=== PATIENT | female | born 1990 | race African-American/Black ===

== ENCOUNTER 2020-12-03 17:53 | Observation (INO) | payer BC, SELFPAY ==
--- NOTE | 2020-12-03 17:44 | PC.NURSE ---
Patient to ED with c/o abdominal tightening and pink discharge and currently 30 weeks . OB nurse notified and transferred to OB at this time.
[2020-12-03 18:15] VITALS: BP 123/66; PULSE 99
[2020-12-03 18:29] VITALS: BMI 31.4
[2020-12-03 18:36] VITALS: TEMP 36.6
--- NOTE | 2020-12-03 18:46 | OBADM ---
This patient, Kaur Davidson, admitted to the OB room OB Post 116 for observation. Patient/family oriented to hospital policies and general routines including ID bracelet, bed and alarms, visiting hours, pain management, procedures, bathroom and other care routines, personal items, smoking policy, room service/diet, and visiting hours. Patient/Family are encouraged to report perceived risks to care and to ask questions if they do not understand what they are told or what they should do.
--- NOTE | 2020-12-03 19:05 | PC.NURSE ---
Dr. Silvestre phoned in for pt report. Report given and orders received.
--- NOTE | 2020-12-03 19:13 | PC.NURSE ---
Pt states she is no longer feeling tightness at this time.
[2020-12-03 19:16] LABS: Add Urine Microscopic? YES; Amorphous Sediment Urine Few; Appearance Urine Clear (Clear); Bacteria Urine Trace /hpf; Bilirubin Urine Negative (Negative); Blood Urine Negative (Negative); Color Urine Straw (Yellow); Glucose Urine UA 1+ mg/dL (Negative); Ketones Urine Negative (Negative); Leukocyte Esterase Ur Negative LEU/UL (Negative); Mucus Urine Rare /lpf; Nitrate Urine Negative (Negative); Protein Urine Negative (Negative); RBC Urine 0-2 /hpf (0-2); Specific Grav Ur 1.006 (1.001-1.035); Urobilinogen Urine Negative mg/dL (<2.0); WBC Urine 0-3 /hpf
--- NOTE | 2020-12-21 08:22 | PM.OBTRLD ---
OB - Triage/Final Diagnosis Visit Information Comments/Additional reasons for admission: I have assessed the risk for this patient, Kaur Davidson, and determined that she would benefit from observation care. Evaluation Laboratory results: Laboratory Tests 12/03/20 18:56 Urine Color Straw Urine Appearance Clear Urine pH 6.0 Ur Specific [place] 1.006 Urine Protein Negative Urine Glucose (UA) 1+ H Urine Ketones Negative Ur Blood (Man) Negative Urine Nitrate Negative Urine Bilirubin Negative Urine Urobilinogen Negative Leukocyte Esterase Rfl Negative Urine RBC 0-2 Urine WBC 0-3 Amorphous Sediment Few H Urine Bacteria Trace Hyaline Casts 1-2 Urine Mucus Rare Final Diagnosis (1) Cramping complicating , antepartum: Code(s): O26.899 - Other specified related conditions, unspecified trimester; R10.9 - Unspecified abdominal pain Status: Acute (2) Vaginal discharge during in third trimester: Code(s): O26.893 - Other specified related conditions, third trimester; N89.8 - Other specified noninflammatory disorders of vagina Status: Acute
--- NOTE | 2021-01-01 10:46 | PM.OBTRLD ---
OB - Triage/Final Diagnosis Visit Information Comments/Additional reasons for admission: I have assessed the risk for this patient, Kaur Davidson, and determined that she would benefit from observation care. Evaluation Laboratory results: Laboratory Tests 12/03/20 18:56 Urine Color Straw Urine Appearance Clear Urine pH 6.0 Ur Specific [place] 1.006 Urine Protein Negative Urine Glucose (UA) 1+ H Urine Ketones Negative Ur Blood (Man) Negative Urine Nitrate Negative Urine Bilirubin Negative Urine Urobilinogen Negative Leukocyte Esterase Rfl Negative Urine RBC 0-2 Urine WBC 0-3 Amorphous Sediment Few H Urine Bacteria Trace Hyaline Casts 1-2 Urine Mucus Rare Final Diagnosis (1) Vaginal discharge during in third trimester: Code(s): O26.893 - Other specified related conditions, third trimester; N89.8 - Other specified noninflammatory disorders of vagina Status: Acute (2) Cramping complicating , antepartum: Code(s): O26.899 - Other specified related conditions, unspecified trimester; R10.9 - Unspecified abdominal pain Status: Acute
== END 2020-12-03 19:35 | disposition home or self-care (01) ==
PROVIDERS: Admitting Provider Obstetrics & Gynecology; Visit Provider Obstetrics & Gynecology
DX: O26.899 Other specified pregnancy related conditions, unspecified trimester (principal); R10.9 Unspecified abdominal pain; O26.893 Other specified pregnancy related conditions, third trimester; N89.8 Other specified noninflammatory disorders of vagina; Z3A.00 Weeks of gestation of pregnancy not specified
CPT/HCPCS: 81001; 84112; G0378; G0379

== ENCOUNTER 2021-01-31 09:50 | Outpatient (RCR) | payer BC, SELFPAY ==
[2021-01-17 15:11] VITALS: BP 106/71; PULSE 95
[2021-01-23 16:07] VITALS: BP 99/66; PULSE 96
--- NOTE | ~2021-01-31 | US_ITS ---
EXAMINATION: US OB limited DATE: 01/17/2021 15:33 INDICATION: Third trimester. Amniotic fluid index. TECHNIQUE: Real-time ultrasound of the pelvis was performed. COMPARISON: None. FINDINGS: There is a single fetus in vertex presentation. The placenta is fundal. heart rate is 138 beat s per minute (bpm). The amniotic fluid index is 18.3 cm cm, which is normal. IMPRESSION: 1. Single living fetus in vertex presentation. 2. Normal amniotic fluid index. Reviewed, dictated and finalized at location A.
--- NOTE | ~2021-01-31 | US_ITS ---
EXAMINATION: US OB limited DATE: 01/31/2021 10:55 INDICATION: Anemia and amniotic fluid index assessment during third trimester TECHNIQUE: Real-time ultrasound of the pelvis was performed. The interpreting radiologist was not pre sent for the study. COMPARISON: 01/23/2021 FINDINGS: There is a single living fetus in vertex presentation. The placenta is posterior. car diac activity and movement are noted. heart rate is 137 beats per minute (bpm). The amnio tic fluid index is 18.6 cm which is normal. IMPRESSION: 1. Single living fetus in vertex presentation. 2. Normal amniotic fluid index. Reviewed, dictated and finalized at location B. L PRESSER
--- NOTE | ~2021-01-31 | US_ITS ---
EXAMINATION: US OB limited DATE: 01/23/2021 16:21 INDICATION: Amniotic fluid index assessment during third trimester TECHNIQUE: Real-time ultrasound of the pelvis was performed. The interpreting radiologist was not pre sent for the study. COMPARISON: 01/17/2021 FINDINGS: There is a single living fetus in vertex presentation. The placenta is posterior/fundal. Fe tita cardiac activity and movement are noted. heart rate is 131 beats per minute (bpm). Th e amniotic fluid index is 15.2 cm which is normal. IMPRESSION: 1. Single living fetus in vertex presentation. 2. Normal amniotic fluid index. Reviewed, dictated and finalized at location B.
[2021-01-31 10:31] VITALS: BP 104/79; PULSE 100
== END 2021-04-05 09:27 | disposition home or self-care (01) ==
LOC: ANHOBOP 09:50
PROVIDERS: Visit Provider Obstetrics & Gynecology
DX: O99.013 Anemia complicating pregnancy, third trimester (principal); D64.9 Anemia, unspecified; Z3A.37 37 weeks gestation of pregnancy; Z3A.39 39 weeks gestation of pregnancy
CPT/HCPCS: 59025; 76815

== ENCOUNTER 2021-02-06 13:01 | Outpatient (CLI) | payer BC, SELFPAY ==
[2021-02-06 13:14] LABS: Basophils Percent Auto 0.3 % (0.2-1.2); Eosinophils Absolute Auto 0.1 K/mm3 (0-0.3); Eosinophils Percent Auto 0.9 % (0-4.4); Hematocrit 33.5 % (37.0-47.0); Hemoglobin 10.1 g/dL (12.0-15.0); Immature Granulocyte Absolute 0.04 K/mm3 (0.00-0.031); Immature Granulocyte Percent A 0.6 % (0-0.5); Immature Platelet Fraction Pct 6.8 % (0.9-11.2); Lymphocytes Absolute Auto 1.28 K/mm3 (0.9-3.2); Lymphocytes Percent Auto 18.5 % (18.3-44.2); Mean Corpuscular HGB Conc 30.1 g/dl (32-36); Mean Corpuscular Hemoglobin 23.1 pg (26-34); Mean Corpuscular Volume 76.5 fl (80-100); Monocytes Absolute Auto 0.5 K/mm3 (0.1-0.6); Monocytes Percent Auto 7.5 % (2.6-8.5); Neutrophils Percent Auto 72.2 % (45.5-73.1); Platelet Count Result 198 k/mm3 (150-375); Red Blood Count 4.38 M/mm3 (4.2-5.4); Red Cell Distribution Width 25.9 % (11.5-14.5); White Blood Count 6.9 K/mm3 (4.5-10.0)
[2021-02-07 06:25] LABS: Rapid Plasma Reagin Non-Reactive (NonReactive)
== END 2021-02-06 13:02 | disposition home or self-care (01) ==
LOC: ANHLAB 13:03
PROVIDERS: Visit Provider Obstetrics & Gynecology
DX: Z34.93 Encounter for supervision of normal pregnancy, unspecified, third trimester (principal); Z3A.38 38 weeks gestation of pregnancy
CPT/HCPCS: 36415; 85025; 85055; 86592; 86850; 86900; 86901

== ENCOUNTER 2021-02-07 05:33 | Inpatient (IN) | payer BC, SELFPAY ==
--- NOTE | 2021-01-17 15:56 | PC.NURSE ---
VERIFIED WITH OR SCHEDULE AND PATIENT -C/S 02/07/21 AT 0730 PATIENT GIVEN REQUISITION FOR LAB DRAW ON 02/06/21
[2021-02-07] VITALS (51 sets, daily range): BP systolic 79–122; BP diastolic 34–87; PULSE 56–117; RESP 14–18; TEMP 36.2–36.8; O2SAT 97–100; BMI 32.5
[2021-02-07] MEDS: LACTATED RINGERS 1,000 ML 999 ML IV CONT ×2 (07:00→08:49)
--- NOTE | 2021-02-07 07:12 | P.PNAN_ITS ---
Anes - Initial Pre Proc Eval Procedure: Operation Date: 02/07/21 07:30 Proposed Procedures p Primary Section - Nicolas Silvestre MD Date/Time: 02/07/21 07:12 Surgeon: Nicolas Silvestre MD Pre Op Diagnosis: Patient Data Age: 30 Gender: F Height: Weight: Last Vital Signs Pulse 87 02/07/21 06:28 BP 122/87 02/07/21 06:28 Allergies Allergy/AdvReac Type Severity Reaction Status Date / Time latex Allergy Mild Unknown Verified 01/30/21 10:00 Home Medications Medication Instructions Recorded Confirmed Type prenat.vits,xochitl,oeo-fmqw-qmysi 1 tablet PO DAILY 07/25/20 01/30/21 History ferrous sulfate 325 mg (65 mg 325 mg PO TID #60 tablet 01/18/21 01/30/21 Rx iron) tablet Patient hx anesthesia problems: none Family hx anesthesia problems: none Results Review: All pre-operative results and documents have been reviewed as part of the pre-operative evaluation. [facility] Past Medical History Medical History Anemia History of miscarriage Surgical History Surgical History History of section, low transverse [place] teeth removed Family History Family History Father Hypertension Mother Hypertension Social History Social History Smoking status: Never smoker Alcohol intake: current Substance use: never Spiritual care concerns: No Anes - Eval Final PreProcedure Day of Procedure 02/07/21 07:12 Patient weight: normal Heart: regular rate and rhythm Lungs: clear to auscultation Airway: Mallampati scale class II Neurological: alert and oriented Last oral intake: >/= 8 hours ASA classification: II Emergent: no Anesthetic plan: proceed Anesthesia type and monitoring: regional spinal and standard monitoring Results Review: All pre-operative results and documents have been reviewed as part of the pre-operative evaluation. Informed Consent: The patient's anesthetic plan and its attendant risks and benefits were discussed with the patient/family/POA. Questions were solicited and answers provided to the satisfaction of the patient/family/POA.
--- NOTE | 2021-02-07 07:15 | P.HP_ITS ---
H&P: HPI History of Present Illness Date/Time: 02/07/21 07:15 Patient admitted for repeat cesearean section at 39 weeks. PNC significant for anemia and prior csection. Declines trial of labor. labs reviewed. Chief Complaint: elective repeat ceserean section. Review of Systems Review of Systems: All systems reviewed & are unremarkable except as noted in HPI and below Constitutional: Constitutional: Reports no additional constitutional complaints and Denies headache(s) Eyes: Eyes: Denies spots in vision ENT: Reports system reviewed and no additional complaints, except as documented and Denies headache(s) Cardiovascular: Cardiovascular: Denies chest pain and Denies dyspnea Respiratory: Respiratory: Denies dyspnea Gastrointestinal: Gastrointestinal: Reports no additional gastrointestinal complaints Genitourinary: Genitourinary: Reports amenorrhea Musculoskeletal: Musculoskeletal: Reports no additional musculoskeletal complaints Integumentary/Breasts: Skin/Breast: Denies breast mass and Denies rash Neurologic: Denies headache(s) Psychiatric: Psychiatric: Reports no additional psychiatric complaints PMFSH Past Medical History Medical History Anemia History of miscarriage Surgical History Surgical History History of section, low transverse [place] teeth removed Family History Family History Father Hypertension Mother Hypertension Social History Social History Smoking status: Never smoker Alcohol intake: current Substance use: never Spiritual care concerns: No Meds Home Medications and Allergies Home Medications Medication Instructions Recorded Confirmed Type prenat.vits,xochitl,emk-zqrc-suasd 1 tablet PO DAILY 07/25/20 01/30/21 History ferrous sulfate 325 mg (65 mg 325 mg PO TID #60 tablet 01/18/21 01/30/21 Rx iron) tablet Allergies Allergy/AdvReac Type Severity Reaction Status Date / Time latex Allergy Mild Unknown Verified 01/30/21 10:00 Vital Signs Vital Signs - 24 hr 02/07/21 06:28 Pulse Rate 87 Blood Pressure 122/87 Exam Const: General: no acute distress Eyes: General: appearance normal, both eyes and all related structures Resp: Effort & Inspection: normal respiratory effort Cardio: Rate: regular rate GI: Other: Gravid no fundal tenderness no right upper quadrant pain Skin: General skin exam: no rashes or lesions noted Neuro: Cognition (Neuro): normal cognition Extrem: General: normal to inspection Psych: Mental Status: mental status grossly normal Assessment and Plan Assessment and plan (1) Delivery by elective section: Code(s): O82 - Encounter for delivery without indication Status: Acute Assessment and Plan: 1. Will proceed with repeat cesearean section.
--- NOTE | 2021-02-07 07:18 | WPDHPUPDATE1 ---
History and Physical Update Update Date/Time: 02/07/21 07:18 History and Physical has been reviewed, including an updated exam of the patient. There are NO changes in the patient's condition. Risks, benefits, and alternatives have been discussed and questions answered. Patient agrees to proceed with procedure.
[2021-02-07] MEDS: ceFAZolin 2 GM/D5W 50 ML 2 GM/50 ML BAG IVPB (07:29)
[2021-02-07] MEDS: LACTATED RINGERS 250 ML 999 ML IVPB (08:02)
--- NOTE | 2021-02-07 08:54 | PM.OP ---
Procedure Note - Brief Procedure Note - Brief Date of procedure: 02/07/21 Pre-op diagnosis: Elective repeat ceserean section. Post-op diagnosis: same Procedure performed: Elective repeat ceserean section. Anesthesia: spinal Surgeon: Nicolas Silvestre MD Estimated blood loss (mL): 315 Drains: No Packing: No Pathology: none sent Complications: No immediate complications Condition: stable Disposition: floor Findings: Male infant, apgars 9,9. 7lbs 110z. Delivery time 0803. Thin lower uterine segment. Loose cord around leg. Loose true knot noted in cord.
--- NOTE | 2021-02-07 09:12 | LDADM ---
This patient, Kaur Davidson, was admitted to Labor/Delivery/Recovery 120 on 02/07/21 at 05:33. Plans for labor, pain management and were discussed with patient. Patient/family oriented to hospital policies and general routines including ID bracelet, bed and alarms, visiting hours, pain management, procedures, bathroom and other care routines, personal items, smoking policy, room service/diet and guest tray routines, infant security routines, call light and visiting hours. Patient/Family are encouraged to report perceived risks to care and to ask questions if they do not understand what they are told or what they should do. See OBIX for further documentation.
[2021-02-07] MEDS: OXYTOCIN 30 UNITS/NS 500 ML 30 UNITS/500 ML BAG 125 UNITS IV CONT (10:20)
--- NOTE | 2021-02-07 10:29 | PC.NURSE ---
RX note : Oxytocin 30 units/500mls bag hung at 1020 at 125 ml/hr
--- NOTE | 2021-02-07 11:16 | OBPPTRN ---
Patient transferred to post room # 285 via stretcher. Support person present. Oriented to unit, room, information board, rooming in, admission packet and security measures. Patient transfered to bed using the maxi air and 3B's. Patient verbalizes understanding.
--- NOTE | 2021-02-07 13:30 | PC.NURSE ---
Mother called out for assist with feeding, reporting sleepy for first feeding at breast 45 minutes with 10-15 minutes of nursing. Assured mother this is normal the first day and should be more awake and eager to feeding by day 2-3. Infant is able to freely thrust tongue past gum ridge and flange both lips. Skin is intact on both nipples, no redness and bruising noted. Reviewed infant feeding cues, frequencies, duration of feedings, feeding elimination flow sheet, and signs of adequate intake. Demonstrated stimulation techniques to wake for feeding. Assisted with infant to breast. Reviewed positioning/alignment in cross cradle, holding breast in ?U? hold and guided asymmetrical latch on. Reviewed rational for each. able to latch correctly within a few attempts. nursed eagerly with steady draws and occasional swallowing noted followed with long pausing. Reviewed signs of a correct latch, effective nursing and suck swallow ratio. Suggested mother stimulate while feeding to increase stimulation for milk supply, for increased intake and to assist with maintaining deep latch. needed constant stimulation to keep awake and nursing effectively. Infant would slip to shallow latch causing tenderness. Demonstrated how to adjust latch more deeply while feeding as needed. Mother reports she can feel the difference in latch with no tenderness. Nipple care reviewed of lanolin after feedings, warm compresses as needed. Instructed mother to call out for RN assistance if she is unable to latch infant for feeding or she has discomfort with nursing. Instructed feeding should be initiated three hours from start of last feeding or if feeding cues are noted before. Mother voiced understanding of information share
[2021-02-07] MEDS: KCL 20 MEQ/D5/0.45% SOD CHL 1,000 ML 125 ML IV CONT (14:38)
--- NOTE | 2021-02-07 15:20 | PC.NURSE ---
Mother called out for assist with feeding, reporting is sleepy and not waking for feeding. Demonstrated stimulation techniques to wake infant for feeding. Several minutes of stimulation to wake . Assisted with infant to breast. Reviewed positioning/alignment in cross cradle, holding breast in ?U? hold and guided asymmetrical latch on. Reviewed rational for each. able to latch correctly within a few attempts. Infant nursed sleepily with steady draws and occasional swallowing noted followed with long pausing. Small amount of glucose water to gloved finger to entice to feed. needed constant stimulation to keep awake and feeding. Reviewed signs of a correct latch, effective nursing and suck swallow ratio. Suggested mother stimulate while feeding to increase stimulation for milk supply, for increased intake and to assist with maintaining deep latch. Infant would slip to shallow latch causing tenderness. Demonstrated how to adjust latch more deeply while feeding as needed. Mother reports she can feel the difference in latch with no tenderness. Nipple care reviewed of lanolin after feedings, warm compresses as needed. Instructed mother to call out for RN assistance if she is unable to latch infant for feeding or she has discomfort with nursing. Instructed feeding should be initiated three hours from start of last feeding or if feeding cues are noted before. Mother voiced understanding of information shared.
[2021-02-08 04:10] VITALS: BP 100/71; PULSE 68; RESP 16; TEMP 36.4; O2SAT 100
[2021-02-08 05:18] LABS: Basophils Percent Auto 0.3 % (0.2-1.2); Eosinophils Absolute Auto 0.1 K/mm3 (0-0.3); Eosinophils Percent Auto 0.6 % (0-4.4); Hematocrit 34.9 % (37.0-47.0); Hemoglobin 10.4 g/dL (12.0-15.0); Immature Granulocyte Absolute 0.05 K/mm3 (0.00-0.031); Immature Granulocyte Percent A 0.5 % (0-0.5); Immature Platelet Fraction Pct 7.3 % (0.9-11.2); Lymphocytes Absolute Auto 1.18 K/mm3 (0.9-3.2); Mean Corpuscular HGB Conc 29.8 g/dl (32-36); Mean Corpuscular Hemoglobin 23.2 pg (26-34); Mean Corpuscular Volume 77.9 fl (80-100); Monocytes Absolute Auto 0.9 K/mm3 (0.1-0.6); Monocytes Percent Auto 8.9 % (2.6-8.5); Neutrophils Absolute Auto 7.6 K/mm3 (1.3-6.7); Neutrophils Percent Auto 77.7 % (45.5-73.1); Platelet Count Result 184 k/mm3 (150-375); Red Blood Count 4.48 M/mm3 (4.2-5.4); Red Cell Distribution Width 25.7 % (11.5-14.5); White Blood Count 9.8 K/mm3 (4.5-10.0)
--- NOTE | 2021-02-08 06:47 | W.PM.PROC2 ---
Procedure Note - Detailed Date of Procedure 02/08/21 Pre-op Diagnosis elective repeat ceserean section Post-op Diagnosis same Procedure Performed Repeat low transverse ceserean section. Surgeon Nicolas Silvestre MD Anesthesia spinal Indications Elective repeat ceserean section. Findings Male , apgars 9,9, normal fallopian tubes and ovaries, lower uterine segment thin, umbilical cord loosely around leg, loose true know noted in cord. Description of Procedure After informed consent, risks and benefits of the procedure was discussed with the patient. The patient was taken to the operating room where adequate spinal anesthesia was administered. She was then prepped and draped in the usual sterile fashion. A Pfannenstiel skin incision was made along the prior Pfannesteihl scar, with a scalpel and carried through to the underlying layer of fascia. The fascia was then nicked in the midline, extending bilaterally. The fascia was dissected off the rectus muscles bluntly and sharply, superiorly and inferiorly. The rectus muscles were in the midline, and peritoneum was identified and entered bluntly. The pelvic organs were visualized. The bladder blade was then inserted. The vesicouterine peritoneum was identified and entered sharply with Metzenbaum scissors and extended bilaterally and a bladder flap was created digitally. The low transverse uterine incision was then made with the scalpel and the amniotic cavity entered, clear fluid noted, and incision was extended with bilateral index fingers in a crescent-shaped fashion. The head was delivered and the rest of the infant was delivered. The nose and mouth suctioned. The cord was unwrapped from around the leg clamped twice and cut. The infant was then handed off to the awaiting nursery staff. The placenta was then delivered manually. The uterine cavity was sponge curetted. The uterus was then exteriorized. The uterine incision was then closed with 0 vicryl in a running locked fashion. A second layer of 0 vicryl was used in an imbricating fashion. The posterior cul de sac was irrigated. The uterus was then returned to the abdomen. Bilateral gutters were cleared off all clots and debris and irrigated. The uterine incision was noted to be hemostatic. Interceed placed on uterine incision and vertically on front of uterus. The muscle bellies were inspected and noted to be hemostatic. The peritoneum was closed with 3.0 vicryl. The subfascial layer was noted to be hemostatic, and the fascia was closed with 0 Vicryl in a running fashion. The subcutaneous layer was irrigated then closed with 3-0 Vicryl in a subcutaneous fashion. The skin was closed with dissolveable nick. Skin dermabond applied at incision. All instruments, needle, and lap counts were correct x3. The patient was taken to the recovery room in stable condition. Estimated Blood Loss -315.0 Urine Output -100.0 Packing No Pathology none sent Complications No immediate complications Condition stable Disposition floor
--- NOTE | 2021-02-08 08:10 | PC.NURSE ---
Mother called out for assist with feeding, reporting was sleepy during the night. Mother was able to pump and offer 10mls EBM for feeding. in bedside crib with heavy feeding cues noted. . Assisted with infant to breast. Reviewed positioning/alignment in cross cradle, holding breast in ?U? hold and guided asymmetrical latch on. Reviewed rational for each. Infant able to latch correctly within a few attempts. Infant nursed eagerly with steady draws and frequent swallowing noted, some pausing noted. Reviewed signs of a correct latch, effective nursing and suck swallow ratio. Suggested mother stimulate while feeding to increase stimulation for milk supply, for increased intake and to assist with maintaining deep latch. Infant was able to maintain latch without discomfort to mother. Demonstrated how to adjust latch more deeply while feeding as needed. Mother reports this is the most awake and eager feeding has had since . Nipple care reviewed of lanolin after feedings, warm compresses as needed. Instructed mother to call out for RN assistance if she is unable to latch for feeding or she has discomfort with nursing. Instructed feeding should be initiated three hours from start of last feeding or if feeding cues are noted before. Mother voiced understanding of information shared
[2021-02-08 08:30] VITALS: BP 120/82; PULSE 75; RESP 16; TEMP 37.3; O2SAT 100
--- NOTE | 2021-02-08 12:35 | P.PNOB_ITS ---
OB - PN: Subj Subjective Date/time seen: 02/08/21 0815 She has adequate pain control. She has sat up in chair. Lochia mild. Tolerated regular food. Baby is well today. OB - PN: Obj Data Labs CBC & Chem 7: 02/08/21 04:08 Labs: Laboratory Results - last 24 hr 02/08/21 02/08/21 04:08 04:08 WBC 9.8 RBC 4.48 Hgb 10.4 L Hct 34.9 L MCV 77.9 L MCH 23.2 L MCHC 29.8 L RDW 25.7 H Plt Count 184 MPV TNP Immature Gran % (Auto) 0.5 Neut % (Auto) 77.7 H Lymph % (Auto) 12.0 L [place] % (Auto) 8.9 H Eos % (Auto) 0.6 Baso % (Auto) 0.3 Lymph # (Auto) 1.18 [place] # (Auto) 0.9 H Eos # (Auto) 0.1 Baso # (Auto) 0.0 Abs Immat Gran (auto) 0.05 H Absolute Neuts (auto) 7.6 H Absolute Nucleated RBC 0.0 Nucleated RBC % 0.0 % Immature Plt Fraction 7.3 Blood Type O Positive OB - PN A/P Assessment and Plan (1) Delivery by elective section: Code(s): O82 - Encounter for delivery without indication Status: Acute Assessment and Plan: She is doing well. Continue routine post . Time Spent With Patient Time: Total time spent is greater than 50% in coordination of care (as documented) at patient's floor/unit and/or counseling patient: Exam Const: General: comfortable and no acute distress Resp: Effort & Inspection: normal respiratory effort Psych: Mental Status: mental status grossly normal Affect: normal affect
--- NOTE | 2021-02-08 12:53 | WPDANLDNPN2 ---
Anes-Prog Note L&D-Neuraxial Date/Time: 02/08/21 12:53 Neuraxial medications: intrathecal PF morphine Opiod-related complaints: none Patient feedback: Patient satisfied with post-operative pain management.
--- NOTE | 2021-02-08 12:54 | WPDANLDPN2 ---
Anes-Prog Note L&D Date/Time: 02/08/21 12:54 Comfortable throughout: section Neuraxial method: spinal Epidural/Spinal procedure site: clean & non-tender Neuro status: Neuro function grossly intact. Cardiovascular status: normal Respiratory status: normal Airway patency: baseline Mental status: baseline Post-Op hydration status: normal Vital Signs: Last Vital Signs Temp 37.3 C 02/08/21 08:30 Pulse 75 02/08/21 08:30 Resp 16 02/08/21 08:30 BP 120/82 02/08/21 08:30 Pulse Ox 100 02/08/21 08:30 Pain score (VAS): 0 I/O: Intake & Output 02/07/21 02/08/21 02/08/21 23:59 07:59 15:59 Intake Total 1300 100 Output Total 2200 700 50 Balance -900 -600 -50 Post-procedural complaints: none Patient feedback: Patient satisfied with anesthetic care.
[2021-02-08] MEDS: IBUPROFEN 600 MG TABLET PO ×3 (15:11→23:22)
[2021-02-08] MEDS: SIMETHICONE 80 MG TAB.CHEW PO (15:15)
--- NOTE | 2021-02-08 17:10 | PC.NURSE ---
Prune juice and pepsi cocktail given for gas pain per Dr. Silvestre
[2021-02-08] MEDS: DOCUSATE SODIUM 100 MG CAPSULE PO (17:30)
[2021-02-08 19:15] VITALS: BP 122/83; PULSE 76; RESP 16; TEMP 37.1; O2SAT 100
[2021-02-09 07:40] VITALS: BP 115/69; PULSE 78; RESP 16; TEMP 36.8; O2SAT 100
--- NOTE | 2021-02-09 09:29 | PC.NURSE ---
Breast feeding note; visited with parents; mother had at the breast when nurse came to bedside. Latch appeared deep, and baby was nursing (second side) with vigorous rhythmic sucking; encouraged mother to stimulate infant to the most vigorous sucking he will do for effective milk transfer, and when he slows to more suckling, OK to switch sides. Mother reports comfortable latch and breast feeding, much improved since baby had the frenulectomy yesterday. reviewed frequency and duration of feedings, care of breasts through engorgement, use of feeding log to monitor feedings and output per day of age. Baby had a very small wet diaper while nurse in room; wanting larger void prior to discharge. Mother reports she is feeling breast changes as if her milk is coming in, and prefers no supplement of formula. agreed. Nurse encouraged q2h feedings, and on demand, if baby will. Mother had questions about pumping to store milk for when she returns to work in 12 weeks. Nurse suggested pumping now only if needed for comfort as her milk is coming in, feeding infant frequently, allowing him to establish the milk supply he needs, and suggested she call LC at about 8 weeks from now for instruction on pumping to be able to store milk. She agreed with this plan. Breast feeding pages flagged in pt's Mother Baby Guide, including LC contact phone number. Mother encouraged to contact with any questions or concerns at any time. Parents were attentive and voiced understanding of information shared. Mother had no other questions for nurse.
[2021-02-09] MEDS: MULTIVIT/MIN/PREN/FOL AC/IRON TABLET 1 TAB PO (10:24)
[2021-02-09] MEDS: DOCUSATE SODIUM 100 MG CAPSULE PO (10:24)
[2021-02-09] MEDS: BISACODYL 10 MG SUPPOSITORY RECTAL ×2 (10:24→14:52)
--- NOTE | 2021-02-09 11:07 | PM.OBDSVD ---
DS: Admitting Diagnosis Discharge Date Jan. Admitting Diagnosis Elective ceserean section DS: Discharge Diagnosis Discharge Diagnosis (1) Delivery by elective section: Code(s): O82 - Encounter for delivery without indication Status: Acute OB - DS: Summary Hospital Course Hospital Course: Patient admitted on Feb 07 for elective repeat ceserean section. She underwent an uncomplicated repeat ceserean section. Post operatively she did well. She was ambulating on post op day 1. Her post op hemoglobin hematocrit was unchanged. On post op day two. She had not had flatus. She was given a suppository. She was tolerating regular foods, no nausea or emesis. OB Procedures : NST and Ultrasound OB Procedures Intrapartum: OB Procedures: : None Peripartum Data Delivery Method: Section Procedures: Procedures Operation Date: 02/07/21 07:30 Actual Procedure Side Surgeon p Primary Section Nicolas Silvestre MD complications: none Status at Discharge Functional status at discharge: independent ambulation Overall status at discharge: patient is back to baseline Time Spent with Patient Time attestation: Total time spent providing and/or coordinating discharge services: Exam Const: General: healthy appearing and comfortable HENMT: Head: normal to inspection Eyes: General: appearance normal, both eyes and all related structures Chest: Chest palpation & inspection: normal inspection of the chest Resp: Effort & Inspection: normal respiratory effort GI: Other: mild distension, hypoactive bowel sounds present, incision intact clean and dry Extrem: General: normal to inspection Other: no calf tenderness Psych: Appearance: grossly normal Discharge Plan Discharge Attending physician on discharge: Nicolas Silvestre Consulting providers: Shane Wilkerson Discharging Clinician: Nicolas Silvestre Anticipated Discharge Date/Time: 02/09/21 10:33 Patient Disposition: Home, Self-Care Activity: may shower, may drive after 2 weeks and pelvic rest Diet: regular Wound Care Instructions: incision open to air Discharge Instructions: No lifting over ten pounds. Call for fever, chills, breast redness or leg pain or redness. Call if any drainage or redness or swelling at incision. Take prescription medication or Tylenol for pain. May also take Ibuprofen over the counter. Recommend taking Miralax daily until having regular bowel movements. Call office to schedule appointment for two to three weeks for incision check. Patient Instructions: Antibiotic Form Stand Alone Forms: General Discharge Information Follow-up/Referrals: Nicolas Silvestre MD [Physician] - 2 Weeks Discharge Medications: New hydrocodone-acetaminophen 5-325 mg Tablet 1 tablet PO Q3H PRN (Reason: Moderate Pain (4-6)) Qty: 25 RF: 0 Continued ferrous sulfate 325 mg (65 mg iron) tablet 325 mg PO TID Qty: 60 RF: 0 prenat.vits,xochitl,[id number] Tablet 1 tablet PO DAILY RF: 0 Date of admission: 02/07/21 05:33 Primary Care Provider: UNKNOWN,DOCTOR Admitting Provider: Nicolsa Silvestre Attending physician on admission: Nicolas Silvestre Condition: Stable
[2021-02-10 07:45] VITALS: BP 123/87; PULSE 84; RESP 20; TEMP 37.2; O2SAT 99
== END 2021-02-09 15:35 | disposition home or self-care (01) | DRG 788 ==
LOC: ANHLDR 05:37 → ANHOB2 11:26
PROVIDERS: Admitting Provider Obstetrics & Gynecology; Visit Provider Obstetrics & Gynecology
PROC: 10D00Z1 Extraction of Products of Conception, Low, Open Approach (ICD-10-PCS; CPT 59514; principal; 2021-02-07 07:30)
DX: O34.211 Maternal care for low transverse scar from previous cesarean delivery (principal); O69.2XX0 Labor and delivery complicated by other cord entanglement, with compression, not applicable or unspecified; Z3A.39 39 weeks gestation of pregnancy; Z37.0 Single live birth; Z23 Encounter for immunization
CPT/HCPCS: 36415; 85025; 85055; 86900; 86901; A9270; J0131; J0690; J2274; J2370; J2405; J2590; J3480; J7120